=== PATIENT | male | born 2005 | race American Indian/Alaskan Native ===

== ENCOUNTER 2024-03-29 21:59 | Inpatient (IN) | payer OTHER ==
[~2024-03-29] VITALS: Ht 172.7 cm; Wt 77.3 kg
[2024-03-29 23:00] LABS: HEMATOCRIT 48.5 % (42.0-52.0); HEMOGLOBIN 16.2 g/dl (13.5-17.5); MEAN CORPUSCULAR HEMOGLOBIN 29.8 pg (27.0-33.0); MEAN CORPUSCULAR HGB CONC 33.4 g/dl (32.0-36.5); MEAN CORPUSCULAR VOLUME 89.2 fl (80.0-96.0); PLATELET COUNT, AUTOMATED 297 10^3/uL (150-450); RED BLOOD COUNT 5.44 10^6/uL (4.30-6.10); WHITE BLOOD COUNT 7.7 10^3/uL (4.0-10.0)
[2024-03-29 23:32] LABS: AMPHETAMINES LEVEL URINE NEGATIVE (NEGATIVE); BARBITURATES URINE NEGATIVE (NEGATIVE)
[2024-03-29 23:33] LABS: BENZODIAZEPINES URINE NEGATIVE (NEGATIVE); CANNABINOIDS URINE NEGATIVE (NEGATIVE); COCAINE METABOLITE URINE NEGATIVE (NEGATIVE); METHADONE URINE NEGATIVE (NEGATIVE); OPIATES URINE NEGATIVE (NEGATIVE); PHENCYCLIDINE URINE NEGATIVE (NEGATIVE)
[2024-03-29 23:35] LABS: ETHYL ALCOHOL (ETHANOL) < 0.003 % (0.000-0.010)
[2024-03-29 23:37] LABS: ALBUMIN 4.5 G/DL (3.2-5.2); ALKALINE PHOSPHATASE 109 U/L (46-116); ALT/SGPT 35 U/L (7.0-40); AST/SGOT 12 U/L (<34); BILIRUBIN,DIRECT < 0.1 MG/DL (<0.4); BILIRUBIN,TOTAL 0.3 MG/DL (0.3-1.2); BLOOD UREA NITROGEN 12 MG/DL (9-23); CALCIUM LEVEL 9.6 MG/DL (8.5-10.1); CARBON DIOXIDE LEVEL 29 MMOL/L (20-31); CHLORIDE LEVEL 105 MMOL/L (98-107); CREATININE FOR GFR 0.88 MG/DL (0.70-1.30); GLUCOSE, FASTING 119 MG/DL (60-100); POTASSIUM SERUM 4.1 MMOL/L (3.5-5.1); SALICYLATE LEVEL < 3.0 MG/DL (<30); SODIUM LEVEL 140 MMOL/L (136-145); TOTAL PROTEIN 7.2 G/DL (5.7-8.2)
[2024-03-29 23:39] LABS: THYROID STIMULATING HORMONE 4.802 uIU/ML (0.48-4.17)
[2024-03-30] MEDS ORDERED: IBUPROFEN 400MG TAB PO PRN (09:35)
[2024-03-30] MEDS ORDERED: ACETAMINOPHEN TAB 650MG DOSE (2X325MG) PO PRN (09:35)
[2024-03-30] MEDS ORDERED: MAALOX 30 ML SUSP *UDC PO PRN (09:35)
[2024-03-30] MEDS ORDERED: MOM 30ML SUSPENSION UDC PO PRN (09:35)
[2024-03-30 10:30] VITALS: BP 125/83; TEMP 98.2
[2024-03-30 16:03] VITALS: BP 128/65; TEMP 98.1; O2SAT 98
[2024-03-30] MEDS: traZODone 50 MG TAB PO PRN (20:31)
[2024-03-31 06:28] VITALS: BP 107/59; TEMP 98; O2SAT 98
[2024-03-31] MEDS ORDERED: MELO15TA28 PO (08:35)
[2024-03-31] MEDS ORDERED: HOME MED LIST COMPLETE! XX SCH (08:40)
[2024-03-31 18:52] VITALS: BP 151/72; TEMP 98
[2024-03-31] MEDS: traZODone 100 MG TAB PO PRN (20:58)
[2024-03-31] MEDS: diphenhydrAMINE 25MG CAP PO PRN (22:00)
[2024-04-01 05:46] VITALS: BP 113/63; TEMP 97.2; O2SAT 99
[2024-04-01] MEDS ORDERED: TRAZ-257 PO (07:57)
== END 2024-04-01 10:38 | disposition home or self-care (01) | DRG 885 ==
LOC: M ED 21:59 → EDBD 21:59 → M ED INP 03-30 09:31 → M PSY 03-30 10:12
PROVIDERS: ADMIT Psychiatry & Neurology Psychiatry; ATTEND Student in an Organized Health Care Education/Training Program
DX: F39 Unspecified mood [affective] disorder (principal); R45.851 Suicidal ideations; Z79.899 Other long term (current) drug therapy

== ENCOUNTER 2024-10-18 19:09 | Emergency (ER) | payer OTHER ==
[~2024-10-18] VITALS: Ht 175.3 cm; Wt 82.3 kg
[~2024-10-18 19:09] MED LIST: MELO15TA28 PO; TRAZ-257 PO
[2024-10-18] MEDS ORDERED: ACET-683 PO (19:34)
[2024-10-18] MEDS ORDERED: D-ME1CAP36 PO (19:34)
[2024-10-18 21:18] LABS: LIPASE 40 U/L (12-53)
[2024-10-18 21:20] LABS: ALKALINE PHOSPHATASE 72 U/L (40-129); ALT/SGPT 25 U/L (7.0-40); AST/SGOT 26 U/L (<34); BILIRUBIN,DIRECT 0.1 MG/DL (<0.4); BILIRUBIN,TOTAL 0.4 MG/DL (0.3-1.2); BLOOD UREA NITROGEN 18 MG/DL (9-23); CALCIUM LEVEL 8.7 MG/DL (8.5-10.1); CARBON DIOXIDE LEVEL 26 MMOL/L (20-31); CHLORIDE LEVEL 106 MMOL/L (98-107); GLUCOSE, FASTING 87 MG/DL (60-100); POTASSIUM SERUM 4.2 MMOL/L (3.5-5.1); SODIUM LEVEL 144 MMOL/L (136-145); TOTAL PROTEIN 7.4 G/DL (5.7-8.2)
[2024-10-19 00:30] VITALS: BP 132/68; TEMP 98.8; O2SAT 97
== END 2024-10-19 00:36 | disposition left against medical advice (07) ==
LOC: M ED 19:09
DX: Z53.21 Procedure and treatment not carried out due to patient leaving prior to being seen by health care provider (principal)